=== PATIENT | male | born 1955 | race Caucasian/White ===

== ENCOUNTER 2017-07-11 09:52 | Day surgery (SDC) | payer BC ==
[2017-07-09 09:36] VITALS: BMI 37.5
[2017-07-11] MEDS ORDERED: Albuterol Sulfate 2.5 mg/3 ml Neb ONE (10:29)
[2017-07-11] MEDS ORDERED: Albuterol Sulfate 2.5 mg/3 ml Neb NEB SCH (10:45)
[2017-07-11] MEDS ORDERED: Lidocaine 2% Jelly 5 ML TUBE ONE (10:46)
[2017-07-11] MEDS ORDERED: Bupivacaine/Epinephrine 0.25% 30 ML VIAL ONE (10:46)
[2017-07-11] MEDS ORDERED: Fentanyl 250 MCG/5 ML VIAL ONE (11:12)
[2017-07-11] MEDS ORDERED: Midazolam HCl 2 mg/2 ml Vial ONE (11:12)
[2017-07-11] MEDS ORDERED: Fentanyl 100 MCG/2 ML VIAL ONE ×2 (12:07→12:21)
--- NOTE | 2017-07-11 12:38 | OP ---
DATE OF PROCEDURE: 07/11/2017 PREOPERATIVE DIAGNOSIS: Anal condyloma, circumferential. POSTOPERATIVE DIAGNOSIS: Anal condyloma, circumferential. PROCEDURE PERFORMED: Fulguration anal condyloma. SURGEON: Dr. Gentile. ANESTHESIA: General. ESTIMATED BLOOD LOSS: Minimal. COMPLICATIONS: None. SPECIMEN: A few of the condyloma. TECHNIQUE: The patient was taken to the operating room and placed supine on the table. After genera l anesthetic was obtained, he was placed in lithotomy position. His perineum is all prepped and drap ed in a sterile fashion. He had 1 condyloma on his penile shaft. It was cauterized and removed and sent to pathology for final diagnosis. The largest condyloma on his back side was removed and sent t o pathology for final diagnosis. He had fulguration of extensive circumferential condyloma to the pe rineum. A lidocaine jelly was placed at the end, no bleeding, no injury to sphincter muscle. The pa tient was en route to recovery in stable condition. All instrument counts, needle counts, lap counts are correct.
[2017-07-11] MEDS ORDERED: HYDROcodone/Acetaminophen 5/325 mg Tablet ONE (13:13)
--- NOTE | 2017-07-12 08:25 | EKG ---
Test Reason : PREOP Blood Pressure : / mmHG Vent. Rate : 086 BPM Atrial Rate : 086 BPM P-R Int : 156 ms QRS Dur : 086 ms QT Int : 376 ms P-R-T Axes : 055 041 034 degrees QTc Int : 449 ms Normal sinus rhythm Normal ECG No previous ECGs available Confirmed by AJ ARGUETA ([id number]) on 07/12/2017 8:25:23 AM Referred By: FIFI Confirmed By:AJ ARGUETA
== END 2017-07-11 13:53 | disposition home or self-care (01) ==
LOC: SDC 09:52
PROVIDERS: ATTEND Surgery
PROC: 0H59XZD Destruction of Perineum Skin, Multiple, External Approach (ICD-10-PCS; principal; 2017-07-11)
DX: A63.0 Anogenital (venereal) warts (principal); J44.9 Chronic obstructive pulmonary disease, unspecified; F17.210 Nicotine dependence, cigarettes, uncomplicated; Z79.51 Long term (current) use of inhaled steroids
CPT/HCPCS: 88305; 93005; 93010; 94640; 96374; J2250; J3010; J7611

== ENCOUNTER 2018-06-11 12:40 | Outpatient (CLI) | payer BC ==
--- NOTE | 2018-06-11 14:10 | RAD ---
2 VIEW CHEST: Date: 06/11/18 INDICATION: Dyspnea. No prior comparison. FINDINGS: Lungs are hyperinflated. There is no consolidation, effusion, or pneumothorax. Cardiac silhouette is mildly enlarged. There is vascular calcification. Mild osseous degenerative change present. IMPRESSION: 1. COPD. 2. Borderline in size cardiac silhouette. Correlate clinically. POS: [facility]
== END 2018-06-11 12:41 | disposition home or self-care (01) ==
LOC: RAD 12:40
PROVIDERS: ATTEND Internal Medicine Pulmonary Disease
DX: R06.00 Dyspnea, unspecified (principal); J44.9 Chronic obstructive pulmonary disease, unspecified
CPT/HCPCS: 71046

== ENCOUNTER 2020-02-15 14:42 | Inpatient (IN) | payer BC ==
--- NOTE | 2020-02-15 15:40 | RAD ---
Portable chest: HISTORY: Shortness of breath COMPARISON: 06/11/2018 FINDINGS:Patchy infiltrate and/or atelectasis in the left lung base at the CP angle. Small effusions cannot be excluded. Lung aldana otherwise clear and unchanged. Heart and mediastinum stable. IMPRESSION:Patchy atelectasis and/or infiltrate in the left lung base.
[2020-02-15 15:54] LABS: #Eosinphils 0.1 thou/uL (0.0-0.7); #Lymphocytes 1.7 thou/uL (1.20-3.40); #Monocytes 0.9 thou/uL (0.11-0.59); #Neutrophils 6.7 thou/uL (1.40-6.50); %Basophils 0.2 % (0.0-1.0); %Eosinophils 1.2 % (0.0-10.0); %Monocytes 9.6 % (0.0-10.0); Mean Corpuscular HGB CONC 33.8 g/dL (32.0-36.0); Mean Corpuscular Hemoglobin 38.8 pg (27.0-31.0); Mean Platelet Volume 7.8 fL (7.4-10.4); Platelet Count 140 thou/uL (130-400); Red Blood Cell (RBC) Count 4.65 mill/uL (4.70-6.10); White Blood Cell (WBC) Count 9.4 thou/uL (4.8-10.8)
[2020-02-15 16:08] LABS: MDiff Complete? YES; Macrocytosis SLIGHT = 6-15 cells (100X) (0-5/hpf); Platelet Morphology Comment Appears Adequate
[2020-02-15 16:12] LABS: ALT (SGPT) 16 U/L (8-55); AST (SGOT) 38 U/L (5-34); Albumin 3.6 g/dL (3.4-4.8); Alkaline Phosphatase 112 U/L (40-110); Anion Gap 18 mmol/L (10-20); BUN (Urea Nitrogen) 14 mg/dL (8.4-25.7); Bilirubin, Total 1.6 mg/dL (0.2-1.2); CK (CPK) 49 U/L (30-200); Calc. Creatinine Clearance 0 mL/min (70-130); Calcium 8.8 mg/dL (7.8-10.44); Carbon Dioxide 33 mmol/L (23-31); Chloride 92 mmol/L (98-107); Estimated GFR-MDRD Greater than 90; Globulin 3.1 g/dL (2.4-3.5); Glucose 86 mg/dL (80-115); Potassium 4.4 mmol/L (3.5-5.1); Protein, Total 6.7 g/dL (5.8-8.1); Sodium 139 mmol/L (136-145)
[2020-02-15 16:34] LABS: CKMB 3.2 ng/mL (0-6.6)
[2020-02-15] MEDS ORDERED: Albuterol 200 PUFF (6.7GM INHALER) ONE (18:14)
[2020-02-15] MEDS ORDERED: cefTRIAXone\\ROCEPHIN 2 GM VIAL ONE (18:24)
[2020-02-15] MEDS ORDERED: Azithromycin 500 MG VIAL ONE (18:24)
[2020-02-15] MEDS ORDERED: Morphine 4 MG/ML VIAL ONE (18:24)
[2020-02-15] MEDS ORDERED: methylPREDNISolone Sod Succ/PF 125 MG/2 ML VIAL ONE (18:24)
[2020-02-15] MEDS ORDERED: Enoxaparin Sodium 60 MG/0.6 ML SYRINGE ONE (18:25)
[2020-02-15 18:37] LABS: Bacteria/HPF None Seen HPF (None Seen); Bilirubin 1+ (Negative); Blood, Urine Negative (Negative); Clarity Clear (Clear); Glucose, Urine (Dipstick) Normal (Negative); Ketone, Urine 10 mg/dL (Negative); Leukocyte Negative Leu/uL (Negative); Mucous/LPF 1+ LPF (<2+); Nitrite Negative (Negative); Protein, Urine (Dipstick) 100 mg/dL (Neg-Trace); RBC/HPF 0-3 HPF (0-3); Specific Gravity, Urine 1.014 (1.002-1.036); Squamous Epithelial 0-3 HPF (0-3); Urobilinogen 6 mg/dL (Less than 2); WBC/HPF 0-3 HPF (0-3)
[2020-02-15] MEDS ORDERED: Nitroglycerin 0.4 MG TAB (25 Tab Bottle) SL PRN (19:35)
[2020-02-15 19:39] LABS: Troponin I 0.211 ng/mL (< 0.028)
[2020-02-15 20:08] LABS: SARS-CoV-2 NAA Rapid Test Not Detected (NotDetected)
--- NOTE | 2020-02-15 21:31 | PDOC.BPN ---
- Brief Progress Note [id number]
[2020-02-15 22:19] LABS: Troponin I 0.202 ng/mL (< 0.028)
[2020-02-15 22:38] VITALS: BMI 36.0
--- NOTE | 2020-02-16 01:22 | HP ---
CHIEF COMPLAINT: Shortness of breath and chest pain. HISTORY OF PRESENT ILLNESS: Mr. Musa is a 64-year-old male with past medical history of COPD, hypertension, cirrhosis ?, cigarette smoker, former drug abuser, presented to the emergency room with shortness of breath and chest pain. The patient stated that the shortness of breath started about a week ago. The patient states he becomes very dyspneic with minimal ambulation. On workup in the emergency room, the patient had elevated troponin of 0.2. EKG showed normal sinus rhythm, rate 87, nonspecific ST changes. BNP was elevated at 419. Sodium 139, potassium 4.4, bilirubin 1.6. WBC 9.4, hemoglobin 18, platelets 140. Chest x-ray showed patchy infiltrate/infiltrate in the left lung base. The patient is being admitted to the hospital for further management. PAST MEDICAL HISTORY: As mentioned above in history of present illness. PAST SURGICAL HISTORY: Foot surgery. SOCIAL HISTORY: The patient drinks every day, less than 5 drinks a day, is a former drug user, abused cocaine. The patient currently smokes cigarettes half pack a day. FAMILY HISTORY: Reviewed and noncontributory. HOME MEDICATIONS: Please see home medication reconciliation form for updated medications. ALLERGIES: NO KNOWN ALLERGIES. REVIEW OF SYSTEMS: Review of 14 systems negative, except what is mentioned in history of present illness. PHYSICAL EXAMINATION: GENERAL: The patient is awake, alert, does not appear to be in acute distress. VITAL SIGNS: Blood pressure 190/64, pulse 88, respiratory rate 18, oxygen saturation 95% on 2 L/minute nasal cannula, temperature 98.6. HEAD AND NECK: Normocephalic, atraumatic. Neck is supple. CHEST: Coarse bilateral breath sounds. HEART: S1, S2 regular. ABDOMEN: Distended. Bowel sounds present. NEUROLOGIC: Awake, alert, moving extremities. PSYCH: Unable to assess. EXTREMITIES: No clubbing or cyanosis. LABORATORY DATA: As mentioned above in history of present illness. IMAGING STUDIES: As mentioned above in history of present illness. ASSESSMENT: 1. Chronic obstructive pulmonary disease with acute exacerbation, [id number] myocardial infarction ?, elevated troponin. 2. Pneumonia. 3. Cigarette smoker. 4. Cirrhosis. 5. Hypertension. PLAN: 1. Admit. 2. Telemonitoring. 3. Aspirin. 4. Serial troponins. 5. Bronchodilators as scheduled and as needed. 6. IV steroids. 7. IV antibiotics. 8. Consult Cardiology for evaluation and further recommendations. 9. Reconcile home medications. 10. DVT prophylaxis as appropriate. 11. Expected length of stay, 2 midnights or more. Job ID: [id number]
[2020-02-16] MEDS: methylPREDNISolone Sod Succ 40 MG VIAL IVP SCH ×4 (01:43→17:32)
[2020-02-16] MEDS: Acetaminophen 325 MG TAB PO PRN (01:43)
[2020-02-16 05:22] LABS: Cardiac Risk 4.2 (Less than 4.5)
[2020-02-16] MEDS: Aspirin 325 mg Enteric Coated Tablet PO SCH (08:47)
[2020-02-16] MEDS: Famotidine/PF 20 mg/2ml Vial SLOW IVP SCH ×2 (10:54→21:59)
[2020-02-16] MEDS: Nicotine 7 MG PATCH TD SCH (13:37)
--- NOTE | 2020-02-16 16:22 | PDOC.HOSPP ---
- Subjective Encounter Date: 02/16/20 Encounter Time: 11:15 Subjective: pt up in bed wants to go home. - Objective Vital Signs & Weight: Vital Signs (12 hours) Temp Pulse Resp BP Pulse Ox 02/16/20 11:35 98.3 F 84 16 133/70 92 L 02/16/20 07:21 98.1 F 76 16 151/82 H 94 L Weight Weight 258 lb 3.2 oz Result Diagrams: 02/15/20 15:31 02/15/20 15:31 Hospitalist ROS - Review of Systems Respiratory: reports: shortness of breath Cardiovascular: denies: chest pain, palpitations, orthopnea, paroxysmal noc. dyspnea, edema, light headedness, other Gastrointestinal: denies: nausea, vomiting, abdominal pain, diarrhea, constipation, melena, hematochezia, other Genitourinary: denies: dysuria, frequency, incontinence, hematuria, retention, other - Medication Medications: Active Medications Generic Name Dose Route Start Last Admin Trade Name Freq PRN Reason Stop Dose Admin Acetaminophen 650 mg 02/15/20 23:18 02/16/20 01:43 Acetaminophen 325 Mg Tab PO 650 mg Q4H PRN Administration Headache/Fever/MILD Pain 1-3 Aspirin 325 mg 02/16/20 09:00 02/16/20 08:47 Aspirin 325 Mg Enteric Coated Tablet PO 325 mg DAILY MEGAN Administration Famotidine 20 mg 02/16/20 09:00 02/16/20 10:54 Famotidine/Pf 20 Mg/2ml Vial SLOW IVP 20 mg BID MEGAN Administration Methylprednisolone Sodium Succinate 40 mg 02/15/20 23:59 02/16/20 10:55 Methylprednisolone Sod Succ 40 Mg Vial IVP 40 mg Q6HR MEGAN Administration Nicotine 7 mg 02/16/20 13:29 02/16/20 13:37 Nicotine 7 Mg Patch TD 7 mg Q24HR MEGAN Administration - Exam Neck: negative: supple, symmetric, no JVD, no thyromegaly, no lymphadenopathy, no carotid bruit, JVD Heart: negative: RRR, no murmur, no gallops, no rubs, normal peripheral pulses, irregular, diminshed peripheral pulses, murmur present, II/IV, III/IV Respiratory: negative: CTAB, no wheezes, no rales, no ronchi, normal chest expansion, no tachypnea, normal percussion, rales, rhonchi, tachypneic, wheezes Gastrointestinal: soft, normal bowel sounds Gastrointestinal - other findings: obese abdomen Hosp A/P (1) COPD exacerbation Code(s): J44.1 - CHRONIC OBSTRUCTIVE PULMONARY DISEASE W (ACUTE) EXACERBATION Status: Acute (2) Elevated troponin Code(s): R77.8 - OTHER SPECIFIED ABNORMALITIES OF PLASMA PROTEINS Status: Acute (3) Obesity Code(s): E66.9 - OBESITY, UNSPECIFIED Status: Acute (4) Pneumonia Code(s): J18.9 - PNEUMONIA, UNSPECIFIED ORGANISM Status: Acute - Plan Continue steroids and antibiotics. We will get an echocardiogram cardiology to see the patient. Patient continues to smoke 3 to 4 cigarettes a day. Patient states that he needs a sleep study however cannot afford. Patient states that he ran out of his inhalers.
[2020-02-16] MEDS ORDERED: Diazepam 5 MG TAB PO PRN (16:30)
[2020-02-16] MEDS ORDERED: PROVENTIL INHALER 6.7 G (200 INHALATIONS) INH PRN (16:30)
[2020-02-16] MEDS: cefTRIAXone\\ROCEPHIN 1 GM in Sodium Chloride 0.9% 100 ML IVPB SCH (17:31)
--- NOTE | 2020-02-16 18:06 | CON ---
DATE OF CONSULTATION: 02/16/2020 INDICATION FOR CONSULTATION: A 64-year-old gentleman, with COPD; hypertension; and cirrhosis, which is recent diagnosis, who presented to the hospital with increasing shortness of breath and perhaps some chest heaviness, but he really actually did not have any significant complaints of chest pain to me. He mainly said he was just short of breath and has some dizziness. HISTORY OF PRESENT ILLNESS: A 64-year-old gentleman, with a history of COPD, hypertension, recently diagnosed with cirrhosis by Dr. Henao, has a long history of tobacco abuse, he still smokes three or four cigarettes a day. He smoked for almost 50 years and smoked up to two packs a day up until last about three months ago, still smoking up to a pack a day. He also drinks a significant amount of alcohol. He was drinking a fifth of whiskey a day and also decreased this about three months ago with his drink this much for years, he says. He actually cut back on his smoking about 2 weeks ago. He had some blood in his stools in the past. He was seen by Dr. Dover. He has had upper endoscopy. He has had I believe a colonoscopy and was diagnosed with cirrhosis of the liver. He has also been told in the past that he had a fatty liver. He was seen at [facility] several years ago, had stress testing, apparently it was unremarkable. He says he had an echocardiogram done at [facility], but I do not think this is an echocardiogram. He said it was done at Dr. Underwood's office and I do not believe the echocardiograms were performed at Dr. Underwood's office. He may have meant an EKG. When he presented to the hospital at this time, his troponin I was 0.21 and has decreased down to 0.20. His BNP was 419. He is still somewhat short of breath. He did admit that he had been on two or three different inhalers, which included Symbicort and other inhalers, but he had ran out of his inhalers, except for the Symbicort about three or four days prior to becoming increasing shortness of breath. He also said that he has been trying to get on some steroids as he had been treated with steroids a couple of years ago and said he felt much better with his breathing. He also complained of being somewhat dizzy with the shortness of breath. He also said for the last month, he has had a chronic cough. He has had no significant lower extremity edema. PAST MEDICAL HISTORY: Significant for the COPD. He has had a history of foot surgery. He also has history of cirrhosis, which was recently diagnosed and fatty liver. SOCIAL HISTORY: He continues to drink, but has cut back. He continues to smoke, but also has cut back. He has done so for about 50 years. He apparently used illegal drugs in the past. FAMILY HISTORY: Noncontributory. MEDICATIONS: Prior to admission included Symbicort, albuterol. In the emergency room, he was given azithromycin, Lovenox, ceftriaxone, methylprednisolone, and Proventil inhaler. ALLERGIES: THERE ARE NO KNOWN DRUG ALLERGIES. REVIEW OF SYSTEMS: He mainly complains of the shortness of breath. He has also had some dark stools in the past. He had no complaints. He denied any lower extremity edema. No history of seizures or syncope. He did have episodes of dizziness. Otherwise, 12-point review of systems was unremarkable. PHYSICAL EXAMINATION: GENERAL: Reveals an elderly gentleman, who is morbidly obese. He appears to be comfortable at this time. VITAL SIGNS: His blood pressure is 137/70, he is afebrile, heart rate is in the 80s, respiratory rate 16, and O2 saturation is 92%. HEENT EXAMINATION: Reveals the head to be normocephalic and atraumatic. NECK: Carotid pulses are present. I did not hear any bruits. CHEST: Has decreased breath sounds throughout, but did not hear any rales, rhonchi, or wheezing. CARDIOVASCULAR: Reveals a regular rate and rhythm with a normal S1, S2. There is no S3 or S4. There are no significant murmurs, heaves, thrills, bruits, or rubs noted. ABDOMEN: Shows morbid obesity. I cannot elicit any tenderness. He may have some mild ascites. EXTREMITIES: Show no clubbing or cyanosis. He does have 1+ lower extremity edema, the left being somewhat more edematous than the right. Pedal pulses are present. NEUROLOGIC: He appears to be intact. LABORATORY DATA: Shows a WBC of 9.4, hemoglobin was 18, hematocrit 53.4, and platelet count 140,000. Potassium was 4.4, sodium was 139, BUN was 14, creatinine 0.72, blood sugar was 86, total bilirubin was 1.6, AST was 38, and alkaline phosphatase was 112. DIAGNOSTIC STUDIES: His EKG shows a normal sinus rhythm with decreased R-wave progression in V1 through V3, which could be compatible with an old myocardial infarction or this could be just normal EKG for this patient. Chest x-ray did show some evidence of possible left lower lobe pneumonia. IMPRESSION: 1. Chronic obstructive pulmonary disease exacerbation with possible underlying pneumonia. He has been treated with antibiotics and steroids. We will continue to monitor this. 2. Abnormal cardiac enzymes, which may indicate a type 2 myocardial infarction due to demand ischemia associated with shortness of breath since the patient ran out of his inhalers and most likely has some left lower lobe pneumonia. 3. History of tobacco abuse. I have advised him absolutely he must stop. 4. History of alcohol abuse. He also needs to stop drinking alcohol. 5. Recent diagnosis of cirrhosis of the liver. He was seen by Dr. Henao. Also, has a history of fatty liver. This will be dealt with by the primary care service or by the air cargo specialist supervisor. At this time, we are still awaiting an echocardiogram to evaluate for elevated BNP. He most likely has some degree of diastolic dysfunction. Depending on the results of the echocardiogram, further recommendations will follow. He may need to undergo stress testing once he is more stable from his chronic obstructive pulmonary disease and pneumonia, but there is no indication he has any acute ongoing ischemia at this time. We are more than happy to continue to follow the patient with you, but otherwise at this time he appears to be stable, except for his underlying chronic obstructive pulmonary disease. Most likely, he will need to be seen by Pulmonology, if he continues to be short of breath. Job ID: [id number]
[2020-02-16] MEDS: Azithromycin 500 MG in Sodium Chloride 0.9% 250 ML 250 ML IVPB SCH (18:19)
[2020-02-16] MEDS: Mometasone 100 MCG/Formoterol 5 MCG 120 PUFF INHALER INH SCH (19:09)
[2020-02-17] MEDS: methylPREDNISolone Sod Succ 40 MG VIAL IVP SCH ×2 (00:47→05:35)
[2020-02-17] MEDS: Mometasone 100 MCG/Formoterol 5 MCG 120 PUFF INHALER INH SCH ×2 (07:30→19:11)
[2020-02-17] MEDS: Amlodipine 10 MG TAB PO SCH (08:28)
[2020-02-17] MEDS: Aspirin 325 mg Enteric Coated Tablet PO SCH (08:29)
[2020-02-17] MEDS: Famotidine/PF 20 mg/2ml Vial SLOW IVP SCH ×2 (08:29→20:13)
[2020-02-17] MEDS: Nicotine 7 MG PATCH TD SCH (12:32)
--- NOTE | 2020-02-17 15:54 | PDOC.HOSPP ---
- Subjective Encounter Date: 02/17/20 Encounter Time: 11:20 Subjective: Patient up in bed feels better today. Patient gets hypoxic on ambulation. - Objective Vital Signs & Weight: Vital Signs (12 hours) Temp Pulse Resp BP BP Pulse Ox 02/17/20 15:25 98.8 F 73 16 166/81 H 96 02/17/20 11:20 98.0 F 81 16 141/74 H 96 02/17/20 07:34 97.3 F L 78 16 164/87 H 98 02/17/20 07:30 75 16 92 L Weight Weight 258 lb 3.2 oz Result Diagrams: 02/15/20 15:31 02/15/20 15:31 Hospitalist ROS - Review of Systems Respiratory: reports: shortness of breath Cardiovascular: denies: chest pain, palpitations, orthopnea, paroxysmal noc. dyspnea, edema, light headedness, other Gastrointestinal: denies: nausea, vomiting, abdominal pain, diarrhea, constipation, melena, hematochezia, other Genitourinary: denies: dysuria, frequency, incontinence, hematuria, retention, other - Medication Medications: Active Medications Generic Name Dose Route Start Last Admin Trade Name Freq PRN Reason Stop Dose Admin Acetaminophen 650 mg 02/15/20 23:18 02/16/20 01:43 Acetaminophen 325 Mg Tab PO 650 mg Q4H PRN Administration Headache/Fever/MILD Pain 1-3 Amlodipine Besylate 10 mg 02/17/20 09:00 02/17/20 08:28 Amlodipine 10 Mg Tab PO 10 mg DAILY MEGAN Administration Aspirin 325 mg 02/16/20 09:00 02/17/20 08:29 Aspirin 325 Mg Enteric Coated Tablet PO 325 mg DAILY MEGAN Administration Famotidine 20 mg 02/16/20 09:00 02/17/20 08:29 Famotidine/Pf 20 Mg/2ml Vial SLOW IVP 20 mg BID MEGAN Administration Ceftriaxone Sodium 1 gm/ 100 mls @ 200 mls/hr 02/16/20 18:00 02/16/20 17:31 Sodium Chloride IVPB 100 mls Q24HR MEGAN Administration Azithromycin 500 mg/ Sodium 250 mls @ 250 mls/hr 02/16/20 18:30 02/16/20 18:19 Chloride IVPB 250 mls Q24HR MEGAN Administration Mometasone Furoate/Formoterol Fumar 1 puff 02/16/20 18:30 02/17/20 07:30 Mometasone 100 Mcg/Formoterol 5 Mcg 120 Puff Inhaler INH 1 puff BID-RT MEGAN Administration Nicotine 7 mg 02/16/20 13:29 02/17/20 12:32 Nicotine 7 Mg Patch TD 7 mg Q24HR MEGAN Administration Pantoprazole Sodium 40 mg 02/17/20 09:00 02/17/20 08:29 Pantoprazole 40 Mg Tab PO 40 mg DAILY MEGAN Administration - Exam Neck: negative: supple, symmetric, no JVD, no thyromegaly, no lymphadenopathy, no carotid bruit, JVD Heart: negative: RRR, no murmur, no gallops, no rubs, normal peripheral pulses, irregular, diminshed peripheral pulses, murmur present, II/IV, III/IV Respiratory: negative: CTAB, no wheezes, no rales, no ronchi, normal chest expansion, no tachypnea, normal percussion, rales, rhonchi, tachypneic, wheezes Gastrointestinal: negative: soft, non-tender, non-distended, normal bowel sounds, no palpable masses, no hepatomegaly, no splenomegaly, no bruit, no guarding, no rigidity, tender to palpation, distended, diminished bowl sounds, voluntary guarding Hosp A/P (1) COPD exacerbation Code(s): J44.1 - CHRONIC OBSTRUCTIVE PULMONARY DISEASE W (ACUTE) EXACERBATION Status: Acute (2) Elevated troponin Code(s): R77.8 - OTHER SPECIFIED ABNORMALITIES OF PLASMA PROTEINS Status: Acute (3) Obesity Code(s): E66.9 - OBESITY, UNSPECIFIED Status: Acute (4) Pneumonia Code(s): J18.9 - PNEUMONIA, UNSPECIFIED ORGANISM Status: Acute - Plan Continue steroids and antibiotics. We will get an echocardiogram cardiology to see the patient. Patient continues to smoke 3 to 4 cigarettes a day. Patient states that he needs a sleep study however cannot afford. Patient states that he ran out of his inhalers. 02/16 continue steroids and antibiotics. Echo pending. Patient most likely will require oxygen. If echo stable will discharge patient home in a.m.
[2020-02-17] MEDS: cefTRIAXone\\ROCEPHIN 1 GM in Sodium Chloride 0.9% 100 ML IVPB SCH (17:32)
[2020-02-17] MEDS: Azithromycin 500 MG in Sodium Chloride 0.9% 250 ML 250 ML IVPB SCH (18:25)
[2020-02-18] MEDS ORDERED: HYDROcodone/Acetaminophen 5/325 mg Tablet PO SCH (01:30)
[2020-02-18] MEDS ORDERED: methylPREDNISolone Sod Succ 40 MG VIAL IVP SCH (06:00)
[2020-02-18] MEDS: Mometasone 100 MCG/Formoterol 5 MCG 120 PUFF INHALER INH SCH ×2 (07:04→19:27)
[2020-02-18] MEDS: Famotidine/PF 20 mg/2ml Vial SLOW IVP SCH (08:42)
[2020-02-18] MEDS: Aspirin 325 mg Enteric Coated Tablet PO SCH (08:44)
[2020-02-18] MEDS: Acetaminophen 325 MG TAB PO PRN (08:44)
[2020-02-18] MEDS: Amlodipine 10 MG TAB PO SCH (08:44)
[2020-02-18] MEDS ORDERED: Acetaminophen/Codeine 30-300mg Tablet PO SCH (10:30)
[2020-02-18 11:28] VITALS: TEMP 98.8
[2020-02-18] MEDS: Nicotine 7 MG PATCH TD SCH (13:54)
[2020-02-18] MEDS: Azithromycin 500 MG in Sodium Chloride 0.9% 250 ML 250 ML IVPB SCH (19:57)
[2020-02-18] MEDS: cefTRIAXone\\ROCEPHIN 1 GM in Sodium Chloride 0.9% 100 ML IVPB SCH (19:57)
[2020-02-18 19:59] VITALS: BP 132/77
--- NOTE | 2020-02-19 00:19 | DIS ---
DATE OF ADMISSION: 02/15/2020 DATE OF DISCHARGE: 02/18/2020 DISCHARGE DIAGNOSES: 1. Acute hypoxic respiratory failure. 2. Chronic obstructive pulmonary disease exacerbation. 3. Pneumonia, most likely community acquired. 4. Mildly elevated troponins, most likely secondary to demand related, type 2. HOSPITAL COURSE: The patient is a 64-year-old male, who initially presented to the hospital on 02/15 with complaints of shortness of breath and chest pain. He was noted at this time to be a little mildly hypoxic. At this time, he was started on some oxygen. His chest x-ray indicated patchy atelectasis versus infiltrate in the left lung base. His COVID test was negative. He was started on some community-acquired antibiotics, also mildly elevated troponins, but no chest pain. The patient was seen by Cardiology. Echocardiogram indicated an EF of 60% to 65% with normal right ventricular valve size. Recommendation was outpatient followup with Cardiology for his followup for possible stress test. The patient at this time was ambulated. He did drop his oxygen sats and [facility] was arranged for this patient. He also was sent home on the following medications: 1. Albuterol 1 puff as needed. 2. Aspirin 81 mg daily. 3. Levaquin 500 mg daily. 4. Prednisone 40 mg taper for a total of 5 days. 5. Norvasc 10 mg daily. 6. Symbicort 1 puff b.i.d. 7. Protonix 40 mg daily. 8. Diazepam 1 tab daily p.r.n. 9. Tylenol No. 3 one tab q.6 hours p.r.n. for the pain in his heel. PHYSICAL EXAMINATION: VITAL SIGNS: On discharge, temperature of 98.8, pulse 73, pulse 60, saturation 92% on 2 L, blood pressure 141/85. GENERAL: He is awake, alert, and oriented x3. Does not appear in distress. CV: S1, S2 present. No murmurs, rubs, or gallops. Again, he wants to be discharged home. He will follow up with his primary care as an outpatient. The patient was educated on diet, exercise, and weight loss. Also, a low-salt diet was recommended for this patient. Job ID: [id number]
== END 2020-02-18 19:30 | disposition home health service (06) | DRG 193 ==
LOC: ERS 14:42 → 2NO 18:51
PROVIDERS: ADMIT Family Medicine; ATTEND Internal Medicine
DX: J18.9 Pneumonia, unspecified organism (principal); J96.01 Acute respiratory failure with hypoxia; J44.1 Chronic obstructive pulmonary disease with (acute) exacerbation; J44.0 Chronic obstructive pulmonary disease with (acute) lower respiratory infection; I24.8 Other forms of acute ischemic heart disease; I10 Essential (primary) hypertension; K74.60 Unspecified cirrhosis of liver; E66.9 Obesity, unspecified; Z20.828 Contact with and (suspected) exposure to other viral communicable diseases; F17.210 Nicotine dependence, cigarettes, uncomplicated; F10.11 Alcohol abuse, in remission; Z98.890 Other specified postprocedural states; Z68.36 Body mass index [BMI] 36.0-36.9, adult
CPT/HCPCS: 36415; 71045; 80053; 80061; 81003; 81015; 82274; 82550; 82553; 83605; 83880; 84484; 85025; 87040; 87086; 87804; 93005; 93306; 94760; 96365; 96367; 96372; 96375; J0456; J0696; J1642; J1650; J2270; J2920; J2930; J3490; J7050; S0028; U0002

== ENCOUNTER 2020-05-22 19:11 | Inpatient (IN) | payer BC, OTHER ==
[~2020-05-22 19:11] MED LIST: Iopamidol-370 76% 500 ML 1 ML ONE
[2020-05-22] MEDS ORDERED: Albuterol 200 PUFF (6.7GM INHALER) ONE (19:31)
[2020-05-22] MEDS ORDERED: predniSONE 20 MG TAB ONE (19:46)
[2020-05-22] MEDS ORDERED: cefTRIAXone\\ROCEPHIN 2 GM VIAL ONE (19:46)
[2020-05-22] MEDS ORDERED: Magnesium 2 GM/50 ML BAG (IN WATER) ONE (19:46)
[2020-05-22] MEDS ORDERED: Boostrix 0.5 ML (Tdap) VIAL ONE (19:46)
[2020-05-22 20:16] LABS: #Lymphocytes 1.2 thou/uL (1.20-3.40); #Monocytes 0.9 thou/uL (0.11-0.59); #Neutrophils 6.4 thou/uL (1.40-6.50); %Basophils 0.2 % (0.0-1.0); %Eosinophils 0.6 % (0.0-10.0); %Lymphocytes 14.3 % (21.0-51.0); %Monocytes 10.5 % (0.0-10.0); %Neutrophils 74.5 % (42.0-75.0); Hemoglobin 17.1 g/dL (14.0-18.0); Mean Corpuscular HGB CONC 31.9 g/dL (32.0-36.0); Mean Corpuscular Hemoglobin 36.6 pg (27.0-31.0); Mean Platelet Volume 7.5 fL (7.4-10.4); Platelet Count 121 thou/uL (130-400); RBC Distribution Width 15.7 % (11.5-14.5); Red Blood Cell (RBC) Count 4.68 mill/uL (4.70-6.10); White Blood Cell (WBC) Count 8.6 thou/uL (4.8-10.8)
[2020-05-22 20:17] LABS: INR-International Normal Ratio 1.2; PTT 26.2 sec (22.9-36.1)
[2020-05-22 20:30] LABS: ALT (SGPT) 16 U/L (8-55); AST (SGOT) 39 U/L (5-34); Albumin 3.8 g/dL (3.4-4.8); Alcohol 37 mg/dL (Less than 10); Alkaline Phosphatase 110 U/L (40-110); Anion Gap 26 mmol/L (10-20); BUN (Urea Nitrogen) 25 mg/dL (8.4-25.7); Bilirubin, Total 1.4 mg/dL (0.2-1.2); Calc. Creatinine Clearance 0 mL/min (70-130); Calcium 8.7 mg/dL (7.8-10.44); Carbon Dioxide 28 mmol/L (23-31); Chloride 94 mmol/L (98-107); Glucose 92 mg/dL (80-115); Potassium 4.6 mmol/L (3.5-5.1); Protein, Total 6.8 g/dL (5.8-8.1); Sodium 143 mmol/L (136-145)
[2020-05-22 20:32] LABS: D-Dimer Test 5.83 *mcg/mL (0.27-0.43)
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
[2020-05-22 20:51] LABS: CKMB 1.3 ng/mL (0-6.6)
[2020-05-22 20:58] LABS: SARS-CoV-2 NAA Rapid Test Not Detected (NotDetected)
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
[2020-05-22] MEDS ORDERED: Azithromycin 250 MG TAB ONE (21:28)
[2020-05-22] MEDS ORDERED: Enoxaparin Sodium 80 MG/0.8 ML SYRINGE ONE (21:42)
[2020-05-22] MEDS ORDERED: Enoxaparin Sodium 30 MG/0.3 ML SYRINGE ONE (21:42)
[2020-05-22] MEDS ORDERED: Lidocaine 1% w/Epinephrine 1:100K 20 ML VIAL ONE (22:13)
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
[2020-05-23] MEDS ORDERED: Lorazepam 2 MG/ML VIAL ONE (00:03)
[2020-05-23] MEDS ORDERED: Furosemide 40 MG/4 ML VIAL ONE (00:03)
[2020-05-23] MEDS ORDERED: Nicotine 14 MG PATCH ONE (00:14)
[2020-05-23] MEDS: methylPREDNISolone Sod Succ 40 MG VIAL IVP SCH ×3 (02:22→18:31)
[2020-05-23 02:28] VITALS: BMI 34.2
[2020-05-23 02:53] LABS: #Lymphocytes 0.5 thou/uL (1.20-3.40); #Monocytes 0.2 thou/uL (0.11-0.59); #Neutrophils 7.5 thou/uL (1.40-6.50); %Eosinophils 0.2 % (0.0-10.0); %Lymphocytes 5.6 % (21.0-51.0); %Monocytes 1.8 % (0.0-10.0); %Neutrophils 92.4 % (42.0-75.0); Hemoglobin 17.1 g/dL (14.0-18.0); Mean Corpuscular HGB CONC 31.3 g/dL (32.0-36.0); Mean Corpuscular Hemoglobin 36.4 pg (27.0-31.0); Mean Platelet Volume 7.4 fL (7.4-10.4); Platelet Count 108 thou/uL (130-400); RBC Distribution Width 15.4 % (11.5-14.5); Red Blood Cell (RBC) Count 4.69 mill/uL (4.70-6.10); White Blood Cell (WBC) Count 8.1 thou/uL (4.8-10.8)
[2020-05-23 03:01] LABS: Troponin I 0.086 ng/mL (< 0.028)
[2020-05-23 03:06] LABS: Anion Gap 24 mmol/L (10-20); BUN (Urea Nitrogen) 21 mg/dL (8.4-25.7); Calc. Creatinine Clearance 117 mL/min (70-130); Calcium 8.7 mg/dL (7.8-10.44); Carbon Dioxide 30 mmol/L (23-31); Chloride 91 mmol/L (98-107); Glucose 153 mg/dL (80-115); Potassium 4.8 mmol/L (3.5-5.1); Sodium 140 mmol/L (136-145)
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
--- NOTE | 2020-05-23 10:16 | ULT ---
EXAM: Bilateral lower extremity venous ultrasound HISTORY: Bilateral lower extremity pain and edema COMPARISON: None TECHNIQUE: Multiplanar grayscale and color Doppler images were obtained in a bilateral lower extremit y venous ultrasound. Spectral analysis of the Doppler waveforms were performed. FINDINGS: The bilateral common femoral vein, profunda femoral veins, superficial femoral veins, and p opliteal veins are normal in appearance without visible thrombus. These vessels demonstrate normal compression, flow, and augmentation. The bilateral posterior tibial veins and greater saphenous veins are patent without evidence of throm bus. There is a 3 cm Bradshaw's cyst in the left popliteal fossa. IMPRESSION: 1. No evidence of DVT. 2. Left Bradshaw's cyst
[2020-05-23] MEDS: Thiamine 100 MG TAB PO SCH (10:24)
[2020-05-23] MEDS: Folic Acid 1 MG TAB PO SCH (10:24)
[2020-05-23] MEDS: Multivitamin W/ Minerals 1 TAB PO SCH (10:24)
[2020-05-23] MEDS ORDERED: Non-Formulary Item 1 EACH (Albuterol Sulfate [Ventolin Hfa] 8 GM Hfa.Aer.Ad) INH PRN (15:16)
[2020-05-23] MEDS ORDERED: Non-Formulary Item 1 EACH (Albuterol Sulfate [Proventil Hfa] 200 PUFF Inh) INH PRN (15:16)
[2020-05-23] MEDS ORDERED: Acetaminophen 325 MG TAB PO PRN (15:16)
[2020-05-23] MEDS: Nicotine 14 MG PATCH TOP SCH (16:02)
[2020-05-23] MEDS: Mometasone 100 MCG/Formoterol 5 MCG 120 PUFF INHALER INH SCH (18:21)
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
[2020-05-23] MEDS: cefTRIAXone\\ROCEPHIN 1 GM in Sodium Chloride 0.9% 100 ML IVPB SCH (22:07)
[2020-05-23] MEDS: Lorazepam 0.5 MG TAB PO PRN (22:07)
[2020-05-24] MEDS: methylPREDNISolone Sod Succ 40 MG VIAL IVP SCH ×3 (01:47→17:31)
[2020-05-24] MEDS: Mometasone 100 MCG/Formoterol 5 MCG 120 PUFF INHALER INH SCH ×2 (07:27→19:21)
[2020-05-24] MEDS: Lorazepam 0.5 MG TAB PO PRN ×2 (08:47→20:35)
[2020-05-24] MEDS ORDERED: Amlodipine 5 MG TAB PO SCH (09:00)
--- NOTE | 2020-05-24 10:35 | CT ---
EXAM: CT ANGIOGRAM OF THE HEAD INDICATION: Possible intracranial aneurysm. COMPARISON: Noncontrast head CT 05/22/2020. TECHNIQUE: CT angiogram of the head are performed in the axial plane. Three-dimensional reformatted images are s ubmitted for interpretation. FINDINGS: NONCONTRAST HEAD CT: Redemonstration of a hypodensity in the left carotid terminus. No parenchymal hemorrhage. No extraaxial hematoma. No midline shift. Basilar cisterns are patent. Brain volume, age-appropriate. Cortical vickers-white white matter differentiation is preserved. No hydrocephalus. Intact calvarium. Left maxillary sinus disease. CTA OF THE WITH AND WITHOUT CONTRAST: POSTCONTRAST CT OF BRAIN: Pathologic enhancement: No pathologic enhancement the brain. CTA OF THE BRAIN: Intracranial internal carotid arteries:Symmetric enhancement and luminal diameter. There is atheroscl erosis bilateral cavernous carotid segments. Anterior circulation: Appropriate enhancement and luminal diameter the A1 segment, A2 segments, M1 se gments and proximal MCA branches. There is a bilobed aneurysm emanating from the left carotid terminus, measuring 0.9 cm cranial caudal by 1.2 cm anterior posterior by 0.7 cm mediolateral. Intracranial vertebral arteries: Symmetric and patent. Posterior circulation: Both radial arteries supply a normal caliber basilar artery. Left P1 segment h as an appropriate enhancement and luminal diameter. 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 Neurosurgical consultation is recommended. Transcribed Date/Time: 05/24/2020 10:51 AM
[2020-05-24] MEDS ORDERED: Iopamidol 370 76% 100 ML VIAL ONE (10:38)
[2020-05-24] MEDS: Thiamine 100 MG TAB PO SCH (11:25)
[2020-05-24] MEDS: Folic Acid 1 MG TAB PO SCH (11:25)
[2020-05-24] MEDS: Aspirin Chewable 81 MG TAB PO SCH (11:25)
[2020-05-24] MEDS: Multivitamin W/ Minerals 1 TAB PO SCH (11:25)
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
[2020-05-24 13:47] LABS: Mean Corpuscular HGB CONC 31.5 g/dL (32.0-36.0); Mean Platelet Volume 7.3 fL (7.4-10.4); Platelet Count 115 thou/uL (130-400); RBC Distribution Width 15.6 % (11.5-14.5); Red Blood Cell (RBC) Count 5.02 mill/uL (4.70-6.10); White Blood Cell (WBC) Count 9.5 thou/uL (4.8-10.8)
[2020-05-24 13:55] LABS: Band 10 % (5-11); Lymphocytes 6 % (21-51); MDiff Complete? YES; Macrocytosis SLIGHT = 6-15 cells (100X) (0-5/hpf); Monocytes 5 % (0-10); Neutrophil 79 % (42-75); Nucleated RBC 1 % (0); Platelet Morphology Comment Appears Decreased; Polychromasia SLIGHT = 2-3 cells (100X) (0-2/hpf)
[2020-05-24 14:11] LABS: Bilirubin, Total 1.1 mg/dL (0.2-1.2); Calcium 9.3 mg/dL (7.8-10.44); Chloride 91 mmol/L (98-107); Potassium 4.5 mmol/L (3.5-5.1); Sodium 138 mmol/L (136-145)
[2020-05-24] MEDS: Nicotine 14 MG PATCH TOP SCH (14:52)
[2020-05-24 16:00] LABS: ALT (SGPT) 15 U/L (8-55); AST (SGOT) 42 U/L (5-34); Albumin 3.8 g/dL (3.4-4.8); Alkaline Phosphatase 102 U/L (40-110); Anion Gap 26 mmol/L (10-20); BUN (Urea Nitrogen) 21 mg/dL (8.4-25.7); Calc. Creatinine Clearance 137 mL/min (70-130); Carbon Dioxide 26 mmol/L (23-31); Globulin 3.6 g/dL (2.4-3.5); Glucose 148 mg/dL (80-115); Protein, Total 7.4 g/dL (5.8-8.1)
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
[2020-05-24] MEDS: cefTRIAXone\\ROCEPHIN 1 GM in Sodium Chloride 0.9% 100 ML IVPB SCH (20:36)
[2020-05-24] MEDS ORDERED: hydrALAZINE 20 MG/ML VIAL SLOW IVP PRN (22:52)
[2020-05-25] MEDS: methylPREDNISolone Sod Succ 40 MG VIAL IVP SCH ×2 (00:13→10:14)
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
[2020-05-25] MEDS: Mometasone 100 MCG/Formoterol 5 MCG 120 PUFF INHALER INH SCH (07:35)
[2020-05-25 08:54] VITALS: BP 151/70; TEMP 98.5
[2020-05-25] MEDS: Lorazepam 0.5 MG TAB PO PRN (08:56)
[2020-05-25] MEDS: Multivitamin W/ Minerals 1 TAB PO SCH (08:56)
[2020-05-25] MEDS: Folic Acid 1 MG TAB PO SCH (08:56)
[2020-05-25] MEDS: Thiamine 100 MG TAB PO SCH (08:57)
[2020-05-25] MEDS: Aspirin Chewable 81 MG TAB PO SCH (08:57)
[2020-05-25] MEDS ORDERED: Amlodipine 5 MG TAB PO SCH (09:00)
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
[2020-05-25] MEDS: Nicotine 14 MG PATCH TOP SCH (15:01)
== END 2020-05-25 16:45 | disposition home or self-care (01) | DRG 193 ==
LOC: ERS 19:11 → 2NO 22:16
PROVIDERS: ADMIT Internal Medicine; ATTEND Internal Medicine
PROC: 3E0234Z Introduction of Serum, Toxoid and Vaccine into Muscle, Percutaneous Approach (ICD-10-PCS; principal; 2020-05-22)
DX: J18.9 Pneumonia, unspecified organism (principal); Z23 Encounter for immunization; Z20.822 Contact with and (suspected) exposure to COVID-19; J96.21 Acute and chronic respiratory failure with hypoxia; J44.0 Chronic obstructive pulmonary disease with (acute) lower respiratory infection; J44.1 Chronic obstructive pulmonary disease with (acute) exacerbation; I10 Essential (primary) hypertension; K74.60 Unspecified cirrhosis of liver; F17.210 Nicotine dependence, cigarettes, uncomplicated; I67.1 Cerebral aneurysm, nonruptured; F10.20 Alcohol dependence, uncomplicated; S01.112A Laceration without foreign body of left eyelid and periocular area, initial encounter; S01.81XA Laceration without foreign body of other part of head, initial encounter; S02.2XXA Fracture of nasal bones, initial encounter for closed fracture; E27.8 Other specified disorders of adrenal gland; V49.40XA Driver injured in collision with unspecified motor vehicles in traffic accident, initial encounter; Z79.51 Long term (current) use of inhaled steroids
CPT/HCPCS: 0240U; 12013; 36415; 70450; 70496; 71045; 71275; 72125; 74177; 74178; 80048; 80053; 80307; 82274; 82553; 83880; 84484; 85025; 85379; 85610; 85730; 86850; 86900; 86901; 90471; 90715; 93005; 93970; 94640; 96365; 96366; 96372; 96375; J0696; J1650; J1940; J2060; J2920; J3475; J3490; J7512; J7620; Q9967

== ENCOUNTER 2020-09-18 11:49 | Inpatient (IN) | payer BC, SELFPAY ==
[2020-09-18 12:14] LABS: #Lymphocytes 0.8 thou/uL (1.20-3.40); #Monocytes 0.8 thou/uL (0.11-0.59); #Neutrophils 5.1 thou/uL (1.40-6.50); %Eosinophils 0.4 % (0.0-10.0); %Lymphocytes 12.1 % (21.0-51.0); %Monocytes 11.5 % (0.0-10.0); Hemoglobin 12.6 g/dL (14.0-18.0); Mean Corpuscular HGB CONC 33.2 g/dL (32.0-36.0); Mean Platelet Volume 7.3 fL (7.4-10.4); Platelet Count 152 thou/uL (130-400); RBC Distribution Width 15.5 % (11.5-14.5); Red Blood Cell (RBC) Count 3.51 mill/uL (4.70-6.10); White Blood Cell (WBC) Count 6.7 thou/uL (4.8-10.8)
[2020-09-18 12:31] LABS: ALT (SGPT) 11 U/L (8-55); AST (SGOT) 34 U/L (5-34); Albumin 3.3 g/dL (3.4-4.8); Alkaline Phosphatase 166 U/L (40-110); Anion Gap 14 mmol/L (10-20); BUN (Urea Nitrogen) 15 mg/dL (8.4-25.7); Bilirubin, Total 2.4 mg/dL (0.2-1.2); Calc. Creatinine Clearance 0 mL/min (70-130); Calcium 8.9 mg/dL (7.8-10.44); Carbon Dioxide 34 mmol/L (23-31); Chloride 94 mmol/L (98-107); Globulin 2.7 g/dL (2.4-3.5); Glucose 119 mg/dL (80-115); Sodium 138 mmol/L (136-145)
[2020-09-18 17:43] LABS: Troponin I 0.016 ng/mL (< 0.028)
[2020-09-18] MEDS ORDERED: Nitroglycerin 2% Ointment 1 INCH/1 GM Packet ONE (18:07)
[2020-09-18] MEDS ORDERED: Aspirin Chewable 81 MG TAB ONE (18:07)
[2020-09-18 20:44] LABS: Troponin I 0.018 ng/mL (< 0.028)
[2020-09-18] MEDS ORDERED: Ketorolac Tromethamine 30 MG/ML VIAL ONE (21:22)
[2020-09-18 23:30] LABS: Troponin I 0.017 ng/mL (< 0.028)
[2020-09-19] MEDS ORDERED: Ondansetron ODT 4 MG TAB SL PRN (00:45)
[2020-09-19] MEDS ORDERED: Ondansetron PF 4 MG/2 ML Vial IVP PRN (00:45)
[2020-09-19] MEDS ORDERED: Acetaminophen 325 MG TAB PO PRN ×2 (00:45→10:27)
[2020-09-19] MEDS ORDERED: Diazepam 5 MG TAB PO PRN (02:11)
[2020-09-19] MEDS ORDERED: Diazepam 5 MG TAB PO SCH (02:15)
[2020-09-19] MEDS ORDERED: Thiamine HCl 200 MG/2 ML VIAL IM SCH (02:15)
[2020-09-19] MEDS ORDERED: Nitroglycerin 0.4 MG TAB (25 Tab Bottle) SL PRN (02:43)
[2020-09-19 03:52] VITALS: BMI 33.3
[2020-09-19] MEDS: Azithromycin 500 MG in Sodium Chloride 0.9% 250 ML 250 ML IVPB SCH (04:00)
[2020-09-19 04:10] LABS: #Basophils 0.1 thou/uL (0.0-0.2); #Eosinphils 0.1 thou/uL (0.0-0.7); #Lymphocytes 1.4 thou/uL (1.20-3.40); #Monocytes 0.6 thou/uL (0.11-0.59); #Neutrophils 4.5 thou/uL (1.40-6.50); %Basophils 0.8 % (0.0-1.0); %Eosinophils 1.1 % (0.0-10.0); %Lymphocytes 20.6 % (21.0-51.0); %Monocytes 9.2 % (0.0-10.0); %Neutrophils 68.3 % (42.0-75.0); Hemoglobin 11.6 g/dL (14.0-18.0); Mean Corpuscular HGB CONC 32.8 g/dL (32.0-36.0); Mean Corpuscular Hemoglobin 35.5 pg (27.0-31.0); Mean Platelet Volume 7.6 fL (7.4-10.4); Platelet Count 143 thou/uL (130-400); RBC Distribution Width 15.7 % (11.5-14.5); Red Blood Cell (RBC) Count 3.28 mill/uL (4.70-6.10); White Blood Cell (WBC) Count 6.6 thou/uL (4.8-10.8)
[2020-09-19 04:26] LABS: Anion Gap 13 mmol/L (10-20); BUN (Urea Nitrogen) 15 mg/dL (8.4-25.7); Calc. Creatinine Clearance 200 mL/min (70-130); Calcium 8.5 mg/dL (7.8-10.44); Carbon Dioxide 34 mmol/L (23-31); Chloride 96 mmol/L (98-107); Glucose 106 mg/dL (80-115); Potassium 3.8 mmol/L (3.5-5.1); Sodium 139 mmol/L (136-145)
[2020-09-19] MEDS ORDERED: methylPREDNISolone Sod Succ/PF 125 MG/2 ML VIAL IVP SCH (06:00)
[2020-09-19 08:18] LABS: INR-International Normal Ratio 1.1; Prothrombin Time 14.6 sec (12.0-14.7)
[2020-09-19 08:19] LABS: PTT 29.1 sec (22.9-36.1)
[2020-09-19] MEDS ORDERED: Lidocaine 1% PF 5 ML VIAL ONE (08:42)
[2020-09-19] MEDS ORDERED: Sodium Bicarbonate 2.5 MEQ/5 ML VIAL ONE (08:42)
[2020-09-19] MEDS ORDERED: Nicotine 21 MG PATCH TD SCH (09:00)
[2020-09-19] MEDS ORDERED: Lorazepam 2 MG/ML VIAL SLOW IVP SCH ×2 (09:45→15:45)
[2020-09-19] MEDS: Multivitamin W/ Minerals 1 TAB PO SCH (10:29)
[2020-09-19] MEDS: Folic Acid 1 MG TAB PO SCH (10:30)
[2020-09-19 10:36] LABS: Fluid, Protein 2.7 g/dL (Not Available)
[2020-09-19 11:00] LABS: BF Color Yellow; Body Fluid Source Paracentesis Fluid; Clarity Hazy (Clear); Tube # EDTA
[2020-09-19] MEDS ORDERED: Albumin 25% 25 GM/100 ML BOT IVPB SCH (11:00)
[2020-09-19 11:45] LABS: RBC Count-Automated (BF) 123 /cu.mm; WBC/Nucleated-Auto (BF) 154 uL
[2020-09-19 12:43] LABS: BF Segmented Neutrophils 9 %; Cell Count Non Hematic 74 %; Lymphocytes 17 %
[2020-09-19] MEDS: Aspirin Chewable 81 MG TAB PO SCH (12:49)
[2020-09-19] MEDS: Amlodipine 10 MG TAB PO SCH (12:49)
[2020-09-19] MEDS: Nicotine 21 MG PATCH TD SCH (16:29)
[2020-09-19] MEDS ORDERED: Furosemide 40 MG/4 ML VIAL SLOW IVP SCH (16:45)
[2020-09-19 20:10] LABS: Troponin I Less than 0.010 ng/mL (< 0.028)
[2020-09-19] MEDS: Diazepam 5 MG TAB PO PRN (23:11)
[2020-09-20] MEDS: Azithromycin 500 MG in Sodium Chloride 0.9% 250 ML 250 ML IVPB SCH (03:29)
[2020-09-20] MEDS ORDERED: Diazepam 5 MG TAB PO PRN (04:00)
[2020-09-20] MEDS: Magnesium Oxide 400 MG TAB PO SCH (08:25)
[2020-09-20] MEDS: Multivitamin W/ Minerals 1 TAB PO SCH (08:25)
[2020-09-20] MEDS: predniSONE 20 MG TAB PO SCH (08:25)
[2020-09-20] MEDS: Folic Acid 1 MG TAB PO SCH (08:25)
[2020-09-20] MEDS: Thiamine 100 MG TAB PO SCH (08:25)
[2020-09-20] MEDS: Amlodipine 10 MG TAB PO SCH (08:25)
[2020-09-20] MEDS: Aspirin Chewable 81 MG TAB PO SCH (08:25)
[2020-09-20] MEDS: Furosemide 40 MG/4 ML VIAL SLOW IVP SCH (14:00)
[2020-09-20] MEDS: Nicotine 21 MG PATCH TD SCH (14:00)
[2020-09-20] MEDS: Diazepam 5 MG TAB PO PRN ×2 (15:54→21:00)
[2020-09-20] MEDS ORDERED: traMADol HCl 50 MG TAB PO PRN (20:15)
[2020-09-21] MEDS: Azithromycin 500 MG in Sodium Chloride 0.9% 250 ML 250 ML IVPB SCH (03:51)
[2020-09-21 05:45] LABS: #Eosinphils 0.1 thou/uL (0.0-0.7); #Lymphocytes 1.5 thou/uL (1.20-3.40); #Monocytes 0.6 thou/uL (0.11-0.59); #Neutrophils 4.5 thou/uL (1.40-6.50); %Basophils 0.5 % (0.0-1.0); %Eosinophils 1.2 % (0.0-10.0); %Lymphocytes 22.8 % (21.0-51.0); %Monocytes 9.4 % (0.0-10.0); %Neutrophils 66.1 % (42.0-75.0); Hemoglobin 11.3 g/dL (14.0-18.0); Mean Corpuscular HGB CONC 31.7 g/dL (32.0-36.0); Mean Corpuscular Hemoglobin 34.8 pg (27.0-31.0); Mean Platelet Volume 7.4 fL (7.4-10.4); Platelet Count 184 thou/uL (130-400); Red Blood Cell (RBC) Count 3.24 mill/uL (4.70-6.10); White Blood Cell (WBC) Count 6.8 thou/uL (4.8-10.8)
[2020-09-21 06:09] LABS: Anion Gap 12 mmol/L (10-20); BUN (Urea Nitrogen) 16 mg/dL (8.4-25.7); Calc. Creatinine Clearance 193 mL/min (70-130); Carbon Dioxide 34 mmol/L (23-31); Cardiac Risk 2.9 (Less than 4.5); Chloride 96 mmol/L (98-107); Cholesterol 110 mg/dl (< 200 Desired); Glucose 135 mg/dL (80-115); HDL Cholesterol 38 mg/dL (>60 Neg Risk); LDL Cholesterol, Calculated 50 mg/dL; Potassium 3.3 mmol/L (3.5-5.1); Sodium 139 mmol/L (136-145); Triglycerides 108 mg/dL (Less than 150)
[2020-09-21] MEDS: Magnesium Oxide 400 MG TAB PO SCH (08:14)
[2020-09-21] MEDS: Aspirin Chewable 81 MG TAB PO SCH (08:14)
[2020-09-21] MEDS: Multivitamin W/ Minerals 1 TAB PO SCH (08:14)
[2020-09-21] MEDS: Amlodipine 10 MG TAB PO SCH (08:15)
[2020-09-21] MEDS: Thiamine 100 MG TAB PO SCH (08:15)
[2020-09-21] MEDS: predniSONE 20 MG TAB PO SCH (08:15)
[2020-09-21] MEDS: Folic Acid 1 MG TAB PO SCH (08:15)
[2020-09-21] MEDS ORDERED: Potassium Chloride 20 MEQ TAB PO SCH (09:30)
[2020-09-21] MEDS ORDERED: Magnesium 2 GM/50 ML 2 GM in Premix Bag 1 BAG IVPB SCH (09:30)
[2020-09-21] MEDS ORDERED: Nicotine 21 MG PATCH TD SCH (12:00)
[2020-09-21] MEDS: Furosemide 40 MG/4 ML VIAL SLOW IVP SCH (15:24)
[2020-09-21] MEDS: Diazepam 5 MG TAB PO PRN (15:27)
[2020-09-21 15:40] VITALS: BP 117/58; TEMP 97.4
[2020-09-21] MEDS ORDERED: Atorvastatin Calcium 40 MG TAB PO SCH (21:00)
== END 2020-09-21 18:22 | disposition home or self-care (01) | DRG 65 ==
LOC: ERS 11:49 → 2SE 18:21 → OBSVTOIN 09-20 13:44
PROVIDERS: ADMIT Internal Medicine; ATTEND Hospitalist
PROC: 0W9G3ZZ Drainage of Peritoneal Cavity, Percutaneous Approach (ICD-10-PCS; principal; 2020-09-19)
DX: I63.9 Cerebral infarction, unspecified (principal); G81.94 Hemiplegia, unspecified affecting left nondominant side; J44.1 Chronic obstructive pulmonary disease with (acute) exacerbation; Z79.82 Long term (current) use of aspirin; Z79.51 Long term (current) use of inhaled steroids; Z79.899 Other long term (current) drug therapy; F17.210 Nicotine dependence, cigarettes, uncomplicated; K70.0 Alcoholic fatty liver; I67.1 Cerebral aneurysm, nonruptured; R29.701 NIHSS score 1; I10 Essential (primary) hypertension; K70.31 Alcoholic cirrhosis of liver with ascites; F10.20 Alcohol dependence, uncomplicated; I25.2 Old myocardial infarction; Z99.81 Dependence on supplemental oxygen
CPT/HCPCS: 36415; 49083; 70450; 70551; 71045; 71275; 72141; 74174; 76705; 80048; 80053; 80061; 82105; 82140; 82150; 82945; 83735; 83880; 84157; 84443; 84484; 85025; 85060; 85610; 85730; 89051; 93005; 93010; 93306; 93880; 94640; 96374; 96375; 96376; G0378; J0456; J1885; J1940; J2060; J2930; J3475; J3490; J7050; J7512; J7620; P9047; Q9967

== ENCOUNTER 2020-10-02 14:13 | Inpatient (IN) | payer SELFPAY ==
[2020-10-02 15:21] LABS: #Eosinphils 0.1 thou/uL (0.0-0.7); #Lymphocytes 1.8 thou/uL (1.20-3.40); #Monocytes 0.6 thou/uL (0.11-0.59); #Neutrophils 6.7 thou/uL (1.40-6.50); %Basophils 0.3 % (0.0-1.0); %Lymphocytes 19.6 % (21.0-51.0); %Monocytes 6.5 % (0.0-10.0); %Neutrophils 72.6 % (42.0-75.0); Hemoglobin 13.1 g/dL (14.0-18.0); Mean Corpuscular HGB CONC 33.2 g/dL (32.0-36.0); Mean Corpuscular Hemoglobin 36.3 pg (27.0-31.0); Mean Platelet Volume 7.5 fL (7.4-10.4); Platelet Count 240 thou/uL (130-400); RBC Distribution Width 17.3 % (11.5-14.5); Red Blood Cell (RBC) Count 3.63 mill/uL (4.70-6.10); White Blood Cell (WBC) Count 9.2 thou/uL (4.8-10.8)
[2020-10-02 15:43] LABS: ALT (SGPT) 16 U/L (8-55); AST (SGOT) 49 U/L (5-34); Albumin 3.1 g/dL (3.4-4.8); Alkaline Phosphatase 173 U/L (40-110); Anion Gap 23 mmol/L (10-20); BUN (Urea Nitrogen) 8 mg/dL (8.4-25.7); Bilirubin, Total 1.4 mg/dL (0.2-1.2); CK (CPK) 19 U/L (30-200); Calc. Creatinine Clearance 0 mL/min (70-130); Calcium 8.8 mg/dL (7.8-10.44); Carbon Dioxide 21 mmol/L (23-31); Chloride 100 mmol/L (98-107); Globulin 3.3 g/dL (2.4-3.5); Glucose 101 mg/dL (80-115); Potassium 4.6 mmol/L (3.5-5.1); Protein, Total 6.4 g/dL (5.8-8.1); Sodium 139 mmol/L (136-145)
[2020-10-02] MEDS ORDERED: methylPREDNISolone Sod Succ/PF 125 MG/2 ML VIAL ONE (15:43)
[2020-10-02] MEDS ORDERED: Aspirin Chewable 81 MG TAB ONE (15:43)
[2020-10-02 16:30] LABS: Acetaminophen Less than 6.0 mcg/mL (10.0-30.0); Alcohol 160 mg/dL (Less than 10); Salicylate Less than 8.0 mg/dL (15.0-30.0)
[2020-10-02] MEDS ORDERED: Nicotine 14 MG PATCH TD SCH (16:45)
[2020-10-02] MEDS ORDERED: Lorazepam 2 MG/ML VIAL SLOW IVP PRN (17:15)
[2020-10-02] MEDS ORDERED: Ondansetron PF 4 MG/2 ML Vial IVP PRN (17:18)
[2020-10-02] MEDS ORDERED: Acetaminophen 325 MG TAB PO PRN (17:18)
[2020-10-02] MEDS ORDERED: Ondansetron ODT 4 MG TAB PO PRN (17:18)
[2020-10-02] MEDS ORDERED: Guaifenesin DM 100-10/5 ML UDCUP PO PRN (17:18)
[2020-10-02] MEDS ORDERED: Sodium Chloride 0.9% 1,000 ML IV SCH (17:30)
[2020-10-02] MEDS ORDERED: Nitroglycerin 0.4 MG TAB (25 Tab Bottle) SL PRN (17:51)
[2020-10-02] MEDS: Mometasone 100 MCG/Formoterol 5 MCG 120 PUFF INHALER INH SCH (18:58)
[2020-10-02 19:13] VITALS: BMI 33.7
[2020-10-02 19:19] LABS: Magnesium 1.4 mg/dL (1.6-2.6); Phosphorus 3.4 mg/dL (2.3-4.7)
[2020-10-02 19:25] LABS: Troponin I 0.025 ng/mL (< 0.028)
[2020-10-02 20:54] LABS: Bacteria/HPF None Seen HPF (None Seen); Bilirubin Negative (Negative); Blood, Urine Negative (Negative); Clarity Clear (Clear); Glucose, Urine (Dipstick) Normal (Negative); Ketone, Urine Negative (Negative); Leukocyte Negative Leu/uL (Negative); Nitrite Negative (Negative); Protein, Urine (Dipstick) 30 mg/dL (Neg-Trace); RBC/HPF 0-3 HPF (0-3); Squamous Epithelial 0-3 HPF (0-3); pH, Urine 5.5 (5.0-9.0)
[2020-10-02] MEDS ORDERED: ALPRAZolam 1 MG TAB PO SCH (21:00)
[2020-10-02 21:01] LABS: Benzodiazepine Screen Detected (NotDetected); Medtox Reader # READER 4
[2020-10-02 21:02] LABS: Amphetamine Not Detected (NotDetected); Barbiturates Screen Not Detected (NotDetected); Cocaine Metabolite Screen Not Detected (NotDetected); Medtox Control Line Valid? VALID (VALID); Methadone Not Detected (NotDetected); Methamphetamine Not Detected (NotDetected); Opiate Screen Not Detected (NotDetected); Oxycodone Screen Not Detected (NotDetected); Phencyclidine (PCP) Not Detected (NotDetected); THC/Cannabinoid Screen Not Detected (NotDetected); Tricyclic Screen Not Detected (NotDetected)
[2020-10-02 21:25] LABS: Troponin I 0.015 ng/mL (< 0.028)
[2020-10-02] MEDS ORDERED: hydrOXYzine 25 MG TAB PO PRN (22:02)
[2020-10-03 04:31] LABS: #Lymphocytes 0.9 thou/uL (1.20-3.40); #Monocytes 0.4 thou/uL (0.11-0.59); #Neutrophils 7.5 thou/uL (1.40-6.50); %Basophils 0.3 % (0.0-1.0); %Eosinophils 0.3 % (0.0-10.0); %Lymphocytes 10.1 % (21.0-51.0); %Monocytes 4.8 % (0.0-10.0); %Neutrophils 84.6 % (42.0-75.0); Hemoglobin 12.3 g/dL (14.0-18.0); Mean Corpuscular HGB CONC 32.9 g/dL (32.0-36.0); Mean Corpuscular Hemoglobin 36.2 pg (27.0-31.0); Mean Platelet Volume 7.4 fL (7.4-10.4); Platelet Count 206 thou/uL (130-400); RBC Distribution Width 17.1 % (11.5-14.5); Red Blood Cell (RBC) Count 3.39 mill/uL (4.70-6.10); White Blood Cell (WBC) Count 8.9 thou/uL (4.8-10.8)
[2020-10-03 04:50] LABS: Anion Gap 14 mmol/L (10-20); BUN (Urea Nitrogen) 9 mg/dL (8.4-25.7); Calc. Creatinine Clearance 175 mL/min (70-130); Calcium 8.7 mg/dL (7.8-10.44); Carbon Dioxide 28 mmol/L (23-31); Chloride 100 mmol/L (98-107); Glucose 194 mg/dL (80-115); Potassium 4.1 mmol/L (3.5-5.1); Sodium 138 mmol/L (136-145)
[2020-10-03] MEDS: Mometasone 100 MCG/Formoterol 5 MCG 120 PUFF INHALER INH SCH ×2 (08:02→20:20)
[2020-10-03] MEDS: Folic Acid 1 MG TAB PO SCH (08:30)
[2020-10-03] MEDS: Aspirin Chewable 81 MG TAB PO SCH (08:30)
[2020-10-03] MEDS: Thiamine 100 MG TAB PO SCH (08:30)
[2020-10-03] MEDS: Cyanocobalamin (Vitamin B-12) 1,000 MCG TAB PO SCH (08:31)
[2020-10-03] MEDS ORDERED: Amlodipine 10 MG TAB PO SCH ×2 (14:03→15:00)
[2020-10-03] MEDS ORDERED: hydrALAZINE 20 MG/ML VIAL SLOW IVP PRN (14:04)
[2020-10-03] MEDS: chlordiazePOXIDE HCl 25 MG CAP PO SCH (20:58)
[2020-10-03] MEDS: Metoprolol Tartrate 25 MG TAB PO SCH (20:58)
[2020-10-04] MEDS: Mometasone 100 MCG/Formoterol 5 MCG 120 PUFF INHALER INH SCH ×2 (06:46→18:40)
[2020-10-04] MEDS: Aspirin Chewable 81 MG TAB PO SCH (08:10)
[2020-10-04] MEDS: chlordiazePOXIDE HCl 25 MG CAP PO SCH ×2 (08:10→22:18)
[2020-10-04] MEDS: Cyanocobalamin (Vitamin B-12) 1,000 MCG TAB PO SCH (08:10)
[2020-10-04] MEDS: Thiamine 100 MG TAB PO SCH ×2 (08:11→16:10)
[2020-10-04] MEDS: Folic Acid 1 MG TAB PO SCH (08:11)
[2020-10-04] MEDS ORDERED: Regadenoson 0.4 MG/5 ML SYRINGE ONE (09:09)
[2020-10-04] MEDS: Amlodipine 10 MG TAB PO SCH (11:26)
[2020-10-04] MEDS: Metoprolol Tartrate 25 MG TAB PO SCH ×2 (11:26→22:17)
[2020-10-04] MEDS ORDERED: Furosemide 40 MG TAB PO SCH (15:00)
[2020-10-04] MEDS: Spironolactone 25 MG TAB PO SCH (16:39)
[2020-10-04] MEDS ORDERED: Nicotine 14 MG PATCH TD SCH (17:00)
[2020-10-05 05:41] LABS: #Basophils 0.1 thou/uL (0.0-0.2); #Eosinphils 0.1 thou/uL (0.0-0.7); #Lymphocytes 1.6 thou/uL (1.20-3.40); #Monocytes 0.6 thou/uL (0.11-0.59); #Neutrophils 4.9 thou/uL (1.40-6.50); %Basophils 0.9 % (0.0-1.0); %Eosinophils 1.7 % (0.0-10.0); %Lymphocytes 22.6 % (21.0-51.0); %Monocytes 7.8 % (0.0-10.0); %Neutrophils 67.1 % (42.0-75.0); Hemoglobin 11.4 g/dL (14.0-18.0); Mean Corpuscular HGB CONC 31.5 g/dL (32.0-36.0); Mean Corpuscular Hemoglobin 35.7 pg (27.0-31.0); Mean Platelet Volume 7.7 fL (7.4-10.4); Platelet Count 152 thou/uL (130-400); RBC Distribution Width 16.7 % (11.5-14.5); Red Blood Cell (RBC) Count 3.19 mill/uL (4.70-6.10); White Blood Cell (WBC) Count 7.3 thou/uL (4.8-10.8)
[2020-10-05 05:53] LABS: Anion Gap 15 mmol/L (10-20); BUN (Urea Nitrogen) 10 mg/dL (8.4-25.7); Calc. Creatinine Clearance 193 mL/min (70-130); Calcium 8.1 mg/dL (7.8-10.44); Carbon Dioxide 30 mmol/L (23-31); Chloride 99 mmol/L (98-107); Glucose 107 mg/dL (80-115); Magnesium 1.6 mg/dL (1.6-2.6); Potassium 3.6 mmol/L (3.5-5.1); Sodium 140 mmol/L (136-145)
[2020-10-05] MEDS: Mometasone 100 MCG/Formoterol 5 MCG 120 PUFF INHALER INH SCH (07:02)
[2020-10-05] MEDS ORDERED: Furosemide 40 MG TAB PO SCH (07:30)
[2020-10-05] MEDS: Spironolactone 25 MG TAB PO SCH (09:07)
[2020-10-05] MEDS: Cyanocobalamin (Vitamin B-12) 1,000 MCG TAB PO SCH (09:07)
[2020-10-05] MEDS: Aspirin Chewable 81 MG TAB PO SCH (09:07)
[2020-10-05] MEDS: Thiamine 100 MG TAB PO SCH (09:08)
[2020-10-05] MEDS: Metoprolol Tartrate 25 MG TAB PO SCH (09:08)
[2020-10-05] MEDS: Folic Acid 1 MG TAB PO SCH (09:09)
[2020-10-05] MEDS: Amlodipine 10 MG TAB PO SCH (09:09)
[2020-10-05] MEDS: chlordiazePOXIDE HCl 25 MG CAP PO SCH (09:09)
[2020-10-05 12:29] VITALS: BP 113/64; TEMP 98.1
== END 2020-10-05 13:35 | disposition home or self-care (01) | DRG 897 ==
LOC: ERS 14:13 → 2SW 16:09 → OBSVTOIN 10-03 16:24
PROVIDERS: ADMIT Internal Medicine; ATTEND Internal Medicine
PROC: HZ2ZZZZ Detoxification Services for Substance Abuse Treatment (ICD-10-PCS; principal; 2020-10-03)
DX: F10.20 Alcohol dependence, uncomplicated (principal); J90 Pleural effusion, not elsewhere classified; I10 Essential (primary) hypertension; R27.0 Ataxia, unspecified; J44.9 Chronic obstructive pulmonary disease, unspecified; R07.9 Chest pain, unspecified; F41.9 Anxiety disorder, unspecified; K70.31 Alcoholic cirrhosis of liver with ascites; F17.210 Nicotine dependence, cigarettes, uncomplicated; Y90.6 Blood alcohol level of 120-199 mg/100 ml; F14.11 Cocaine abuse, in remission; Z86.73 Personal history of transient ischemic attack (TIA), and cerebral infarction without residual deficits; I25.2 Old myocardial infarction; Z98.890 Other specified postprocedural states; Z79.82 Long term (current) use of aspirin; Z79.899 Other long term (current) drug therapy; Z71.6 Tobacco abuse counseling
CPT/HCPCS: 36415; 70450; 71045; 71275; 76705; 78452; 80048; 80053; 80306; 80307; 81001; 82550; 82607; 82746; 83735; 83880; 84100; 84484; 85025; 93005; 93017; 94640; 96374; A9500; G0378; J2785; J2930; J7620; Q9967